=== PATIENT | male | born 1960 ===

== ENCOUNTER 2024-08-23 12:45 | Outpatient (CLI) | payer OTHER | END 2024-08-23 13:35 | disposition home or self-care (01) | LOC: MRI 12:45 | DX: M51.16 Intervertebral disc disorders with radiculopathy, lumbar region (principal) | CPT/HCPCS: 72148 ==

== ENCOUNTER 2025-02-27 07:22 | Outpatient (CLI) | payer OTHER | END 2025-02-27 07:23 | disposition home or self-care (01) | LOC: NUCLEAR 07:22 | PROVIDERS: ATTEND Internal Medicine | DX: I20.9 Angina pectoris, unspecified (principal) | CPT/HCPCS: 78452; 93017; A9500 ==